=== PATIENT | female | born 1960 | race Caucasian/White ===

== ENCOUNTER 2017-08-21 12:07 | Outpatient (RCR) | payer BC ==
[~2017-08-21] VITALS: Ht 167.6 cm; Wt 100.0 kg
[2017-08-21] MEDS ORDERED: SYNTHROID 0.10.15 MG PO (12:14)
[2017-08-21] MEDS ORDERED: CYTOMEL 5MC5 MCG/TAB PO (12:19)
[2017-08-21 12:31] VITALS: BP 114/73; PULSE 72; TEMP 97.8
[2017-08-22 12:08] VITALS: BP 120/70; PULSE 70; TEMP 97.3
== END 2017-08-22 12:10 | disposition home or self-care (01) ==
LOC: EUO 12:07 → EDSTATUS 12:15 → EUO 12:15
DX: C73 Malignant neoplasm of thyroid gland (principal)
CPT/HCPCS: J3240

== ENCOUNTER → 2017-08-23 | Outpatient (CLI) | payer BC ==
[~2017-08-23] MED LIST: CYTOMEL 5MC5 MCG/TAB PO; SYNTHROID 0.10.15 MG PO
== END ==
LOC: COL.LAB 12:02 → COL.RAD 12:02
DX: C73 Malignant neoplasm of thyroid gland (principal); E89.0 Postprocedural hypothyroidism
CPT/HCPCS: A9528

== ENCOUNTER 2017-08-30 12:30 | Outpatient (RCR) | payer OTHER | END 2017-08-31 08:18 | disposition home or self-care (01) | LOC: WSPT 12:30 | DX: S76.012A Strain of muscle, fascia and tendon of left hip, initial encounter (principal); W18.41XA Slipping, tripping and stumbling without falling due to stepping on object, initial encounter; Z90.49 Acquired absence of other specified parts of digestive tract; Z90.710 Acquired absence of both cervix and uterus; Z98.890 Other specified postprocedural states ==

== ENCOUNTER → 2018-08-17 | Outpatient (CLI) | payer BC | LOC: MC.RAD 14:15 | DX: Z12.31 Encounter for screening mammogram for malignant neoplasm of breast (principal) ==

== ENCOUNTER → 2019-09-12 | Outpatient (CLI) | payer BC | LOC: COL.RAD 10:43 | DX: E89.0 Postprocedural hypothyroidism (principal) ==

== ENCOUNTER → 2021-09-22 | Outpatient (CLI) | payer BC ==
[~2021-09-22] MED LIST changes: +SAXENDA6 MG/ML SQ; -SYNTHROID 0.10.15 MG PO; +SYNTHROID0.1 MG/TAB PO
== END ==
LOC: COL.RAD 07:23
DX: M79.9 Soft tissue disorder, unspecified (principal)
CPT/HCPCS: A9575